=== PATIENT | female | born 1960 | race Caucasian/White ===

== ENCOUNTER → 2016-10-11 | Outpatient (CLI) | payer MEDICAID, BC ==
--- NOTE | 2016-10-14 10:40 | MM ---
Reason for exam: screening (asymptomatic). Last mammogram was performed 1 year ago. History: Patient is postmenopausal. Family history of premenopausal breast cancer in sister at age 32 and premenopausal breast cancer in daughter at age 26. Benign left mammotome panel of the left breast, March 18, 2007. Excisional biopsy of the right breast, 1995. Took hormonal contraceptives for 5 years beginning at age 17. Physical Findings: A clinical breast exam by your physician is recommended on an annual basis and results should be correlated with mammographic findings. MG 3D Screening Mammo W/Cad Bilateral CC and MLO view(s) were taken. Prior study comparison: October 04, 2015, bilateral MG 3d screening mammo w/cad. September 28, 2014, bilateral MG screening mammo w CAD. The breast tissue is heterogeneously dense. This may lower the sensitivity of mammography. Finding: There are typically benign round calcifications in the left breast. Previous mammotome biopsy in the left breast. There is a chronic nodularity bilaterally. There is no discrete abnormality. ASSESSMENT: Benign, BI-RAD 2 RECOMMENDATION: Routine screening mammogram of both breasts in 1 year.
== END | disposition home or self-care (01) ==
LOC: RADMAMWWP 07:32
PROVIDERS: ATTEND Family Medicine
DX: Z12.31 Encounter for screening mammogram for malignant neoplasm of breast (principal)
CPT/HCPCS: 77063; G0202

== ENCOUNTER → 2016-11-04 | Outpatient (CLI) | payer MEDICAID, BC ==
--- NOTE | 2016-11-06 07:43 | XR ---
EXAMINATION TYPE: XR Hip Complete RT DATE OF EXAM: 11/04/2016 9:47 AM COMPARISON: NONE HISTORY: Pain There is no evidence of erosive change or acute fracture. There is axial narrowing of the joint space. No erosive changes. No acute fracture or dislocation. Impression 1. No evidence of acute fracture or dislocation. 2. Significant axial narrowing of the joint space without evidence of erosion. Correlate clinically f or arthropathy.
== END | disposition home or self-care (01) ==
LOC: RADXRYALE 09:33
PROVIDERS: ATTEND Physician Assistant Medical
DX: M25.851 Other specified joint disorders, right hip (principal)
CPT/HCPCS: 73502

== ENCOUNTER 2017-03-10 07:04 | Day surgery (SDC) | payer MEDICAID, BC ==
[2017-03-06 10:53] VITALS: BMI 28.3
[~2017-03-10 07:04] MED LIST: LACTATED RINGERS 1,000 ML IV SCH
[2017-03-10 07:21] VITALS: TEMP 97.6
[2017-03-10] MEDS ORDERED: ONDANSETRON 4 MG/2 ML VIAL IVP STA (07:24)
[2017-03-10] MEDS ORDERED: ONDANSETRON 4 MG/2 ML VIAL IVP ONE (07:30)
[2017-03-10] MEDS ORDERED: PROPOFOL 10 MG/ML 20 ML VIAL IV ONE (07:34)
[2017-03-10] MEDS ORDERED: LIDOCAINE 1% INJ 10MG/ML (20 ML MDV) ONE (07:34)
--- NOTE | 2017-03-10 08:03 | P.OP ---
Date of Procedure: 03/10/17 Preoperative Diagnosis: Screening. Family history of colon cancer in a sibling. Postoperative Diagnosis: 1.sigmoid polyp. 2. moderate diverticulosis. Procedure(s) Performed: Colonoscopy and snare polypectomy Implants: Anesthesia: MAC Surgeon: George Garcia Estimated Blood Loss (ml): 0 Pathology: other (Sigmoid polyp) Condition: stable Disposition: same day Indications for Procedure: Screening. Family history of colon cancer in a sibling. Operative Findings: Small sigmoid polyp about 3 mm in diameter sessile. Moderate diverticulosis. Mild internal hemorrhoids slightly irritated. Description of Procedure: With the patient in the left lateral position rectal digital examination was normal there no palpable masses. 5 video colonoscope was inserted transanally and advanced all the way to the cecum which was entered without visualized. The mucosa were thoroughly examined. Findings 1 there was a small sessile polyp in the sigmoid colon at about 28 cm from the anal verge about the 3 mm in diameter that was removed completely with the snare cautery with good hemostasis. 2 moderate diverticulosis uncomplicated mostly in the sigmoid area with a few scattered diverticula throughout the remainder of the colon. 3 mild internal hemorrhoids appear slightly irritated from the prep. Recommend high-fiber diet. Follow-up colonoscopy in about 5 years.
[2017-03-10 08:30] VITALS: RESP 18
[2017-03-10 08:59] VITALS: BP 136/84; PULSE 66
== END 2017-03-10 09:12 | disposition home or self-care (01) ==
LOC: ORWHC2ENDO 07:04
PROVIDERS: ATTEND Surgery
DX: Z12.11 Encounter for screening for malignant neoplasm of colon (principal); K63.5 Polyp of colon; K57.30 Diverticulosis of large intestine without perforation or abscess without bleeding; K64.8 Other hemorrhoids; Z80.0 Family history of malignant neoplasm of digestive organs; E03.9 Hypothyroidism, unspecified; M85.80 Other specified disorders of bone density and structure, unspecified site; M19.90 Unspecified osteoarthritis, unspecified site; Z79.1 Long term (current) use of non-steroidal anti-inflammatories (NSAID); Z79.83 Long term (current) use of bisphosphonates; Z79.899 Other long term (current) drug therapy; Z88.6 Allergy status to analgesic agent; Z88.5 Allergy status to narcotic agent
CPT/HCPCS: 88305; 45385; J2405; J2001; J2704

== ENCOUNTER → 2017-03-18 | Outpatient (CLI) | payer MEDICAID, BC ==
--- NOTE | 2017-03-18 23:25 | MR ---
EXAMINATION TYPE: MR lumbar spine wo con DATE OF EXAM: 03/18/2017 COMPARISON: MRI lumbar spine March 30, 2012. HISTORY: Chronic pain, lumbago with sciatica, and right-sided sciatica all per order. Pain in low patricia k and right hip for one year per patient. TECHNIQUE: Multiplanar, multisequence imaging of the lumbar spine is performed without IV contrast. FINDINGS: Sagittal images of the lumbar spine show vertebral body heights to appear satisfactory. The re is slight grade 1 anterolisthesis of L4 on L5 seen on today's study. Multilevel disc desiccation i s redemonstrated. Mild disc space narrowing lower lumbar levels is again seen. No large posterior dis c herniations are noted on sagittal images. The conus medullaris remains normal in position and signa l ending at T12-L1 disc space. The bone marrow signal intensity is within normal limits. Hemangioma at T11 vertebra is redemonstrated. Mild multilevel anterior spurring lower lumbar levels is seen. Axial images show the T12-L1, L1-L2, L2-L3, and L3-L4 levels all to remain within normal limits. Axial images at L4-L5 level show mild/moderate facet degenerative changes and ligamentum flavum hyper trophy with spondylolisthesis and small posterior disc herniation mildly effacing anterior thecal sac on axial image 10. Bilateral neural foramina remain patent. Axial images at L5-S1 level show mild to moderate facet degenerative changes bilaterally. Spinal anabela l is preserved. Bilateral neural foramina are patent. IMPRESSION: Degenerative changes L4-L5 and L5-S1 level redemonstrated as detailed above. No Significa nt change from prior MRI. No significant finding is seen to account for patient's right-sided radicul opathy type symptoms.
== END | disposition home or self-care (01) ==
LOC: RADMRIMAIN 17:17
PROVIDERS: ATTEND Physician Assistant Medical
DX: M47.817 Spondylosis without myelopathy or radiculopathy, lumbosacral region (principal); G89.29 Other chronic pain
CPT/HCPCS: 72148

== ENCOUNTER → 2017-03-19 | Outpatient (CLI) | payer MEDICAID, BC ==
--- NOTE | 2017-03-19 19:31 | MR ---
EXAMINATION TYPE: MR hip RT wo con DATE OF EXAM: 03/19/2017 COMPARISON: NONE HISTORY: Right Hip and leg pain Standard multiplanar, multisequence MRI departmental protocol Multiplanar, multisequence images of the right hip were acquired. Diffusion weighted imaging was perf ormed. FINDINGS: There is axial narrowing of the joint space. No erosive changes. There is no marrow edema or contusion. No evidence of osteonecrosis. There is no sizable joint effusion. Anterior labrum appears intact There is a small focal area of abnormal signal along the lateral margin of the greater trochanter. No adjacent marrow edema. This is adjacent to the insertion of the gluteus medius muscle. No definite t endinous retraction or full-thickness tear. Could not exclude partial tear. IMPRESSION: 1. Correlate for trochanteric bursitis gluteus medius tendinosis. 2. Arthritic changes with no diagnostic evidence of erosive change. Correlate for femoral acetabular impingement.
== END | disposition home or self-care (01) ==
LOC: RADMRIMAIN 17:39
PROVIDERS: ATTEND Physician Assistant Medical
DX: M16.11 Unilateral primary osteoarthritis, right hip (principal); M54.31 Sciatica, right side

== ENCOUNTER → 2018-01-16 | Outpatient (CLI) | payer MEDICAID, BC ==
--- NOTE | 2018-01-20 11:22 | MM ---
Reason for exam: screening (asymptomatic). Last mammogram was performed 1 year and 3 months ago. History: Patient is postmenopausal. Family history of premenopausal breast cancer in sister at age 32 and premenopausal breast cancer in daughter at age 26. Benign left mammotome panel of the left breast, March 18, 2007. Excisional biopsy of the right breast, 1995. Took hormonal contraceptives for 5 years beginning at age 17. Physical Findings: A clinical breast exam by your physician is recommended on an annual basis and results should be correlated with mammographic findings. MG 3D Screening Mammo W/Cad Bilateral CC and MLO view(s) were taken. Prior study comparison: October 11, 2016, bilateral MG 3d screening mammo w/cad. October 04, 2015, bilateral MG 3d screening mammo w/cad. There are scattered fibroglandular densities. Previous mammotome biopsy in the left breast. No significant changes when compared with prior studies. ASSESSMENT: Negative, BI-RAD 1 RECOMMENDATION: Routine screening mammogram of both breasts in 1 year.
== END | disposition home or self-care (01) ==
LOC: RADMAMWWP 07:06
PROVIDERS: ATTEND Obstetrics & Gynecology
DX: Z12.31 Encounter for screening mammogram for malignant neoplasm of breast (principal); Z80.3 Family history of malignant neoplasm of breast
CPT/HCPCS: 77063; 77067

== ENCOUNTER → 2018-06-03 | Outpatient (CLI) | payer MEDICAID, BC ==
--- NOTE | 2018-06-03 13:52 | US ---
EXAMINATION TYPE: US thyroid st tissue head/neck DATE OF EXAM: 06/03/2018 COMPARISON: NONE CLINICAL HISTORY: R22.1 swelling/lump/neck. Patient can feel a palpable lump in her left neck, specif ically when she is sitting up. Patient has been taking synthroid for 10-15 years. GLAND SIZE: Right Lobe: 3.1 x 0.6 x 1.1 cm Overall Parenchyma: homogenous Left Lobe: 2.4 x 0.6 x 1.0 cm Overall Parenchyma: homogeneous Isthmus Thickness: 0.2 cm NODULES RIGHT: # of nodules measured on right: 0 LEFT: # of nodules measured on left: 0 ISTHMUS: # of nodules measured in the isthmus: 0 On the left side, there is a prominent hyperechoic area visualized. It appears to be inferior to the thyroid. It measures 0.7 x 0.3 x 0.5 cm. No abnormality is visualized at the area of the patient's pa lpable. IMPRESSION: 1. No abnormality to account for the patient's palpable abnormality. 2. Small subcentimeter hyperechoic area may be a small parathyroid inferior to the left lobe thyroid.
== END | disposition home or self-care (01) ==
LOC: RADUSWWP 12:38
PROVIDERS: ATTEND Family Medicine
DX: R22.1 Localized swelling, mass and lump, neck (principal)
CPT/HCPCS: 76536

== ENCOUNTER → 2019-02-11 | Outpatient (CLI) | payer BC ==
--- NOTE | 2019-02-11 09:07 | US ---
EXAMINATION TYPE: US thyroid st tissue head/neck DATE OF EXAM: 02/11/2019 COMPARISON: US 2018 CLINICAL HISTORY: R22.1 Localized swelling, mass, or lump. Palpable lump left neck x 1 year GLAND SIZE: Right Lobe: 3.6 x 1.1 x 1.0 cm Overall Parenchyma: homogenous Left Lobe: 2.8 x 0.7 x 1.1 cm Overall Parenchyma: homogeneous Isthmus Thickness: 0.2 cm NODULES RIGHT: # of nodules measured on right: 0 LEFT: # of nodules measured on left: 0 ISTHMUS: # of nodules measured in the isthmus: 0 Bilateral neck scanned, left neck: 0.6 x 0.4 x 0.5cm hyperechoic area inferior to thyroid, seen on pr evious exam. Left neck at patient's palpable area: no abnormality seen at this time. IMPRESSION: 1. Stable hyperechoic nodule within the left neck measuring 6 mm too small to characterize.
--- NOTE | 2019-02-16 13:32 | MM ---
Reason for exam: screening (asymptomatic). Last mammogram was performed 1 year and 1 month ago. History: Patient is postmenopausal. Family history of premenopausal breast cancer in sister at age 32 and premenopausal breast cancer in daughter at age 26. Benign left mammotome panel of the left breast, March 18, 2007. Excisional biopsy of the right breast, 1995. Took hormonal contraceptives for 5 years beginning at age 17. Physical Findings: A clinical breast exam by your physician is recommended on an annual basis and results should be correlated with mammographic findings. MG Screening Mammo w CAD Bilateral CC and MLO view(s) were taken. Prior study comparison: January 16, 2018, bilateral MG 3d screening mammo w/cad. October 11, 2016, bilateral MG 3d screening mammo w/cad. The breast tissue is heterogeneously dense. This may lower the sensitivity of mammography. No suspicious abnormality. Left biopsy marker. No significant changes when compared with prior studies. ASSESSMENT: Negative, BI-RAD 1 RECOMMENDATION: Routine screening mammogram of both breasts in 1 year.
== END | disposition home or self-care (01) ==
LOC: RADMAMWWP 08:28
PROVIDERS: ATTEND Family Medicine
DX: Z12.31 Encounter for screening mammogram for malignant neoplasm of breast (principal); R22.1 Localized swelling, mass and lump, neck
CPT/HCPCS: 76536; 77067

== ENCOUNTER → 2019-10-26 | Outpatient (CLI) | payer BC ==
--- NOTE | 2019-10-26 16:26 | XR ---
Right shoulder HISTORY: Right shoulder pain 3 views of the right shoulder Bone mineralization, joint spaces and alignment are maintained. Right lung apex is unremarkable as vi sualized. IMPRESSION: Normal right shoulder. Shoulder MRI may be of benefit.
== END | disposition home or self-care (01) ==
LOC: RADXRYALE 14:42
PROVIDERS: ATTEND Physician Assistant Medical
DX: M25.511 Pain in right shoulder (principal)

== ENCOUNTER → 2020-03-23 | Outpatient (CLI) | payer BC ==
--- NOTE | 2020-03-23 12:21 | XR ---
EXAMINATION TYPE: XR knee complete RT DATE OF EXAM: 03/23/2020 COMPARISON: NONE HISTORY: Pain TECHNIQUE: Three views are submitted. FINDINGS: Joint spaces are preserved. Osseous structures are intact. No acute fracture seen. Mild diffuse os teopenia IMPRESSION: 1. No acute fracture or dislocation.
== END | disposition home or self-care (01) ==
LOC: RADXRYALE 11:29
PROVIDERS: ATTEND Physician Assistant Medical
DX: M25.561 Pain in right knee (principal)

== ENCOUNTER → 2020-05-11 | Outpatient (CLI) | payer BC ==
--- NOTE | 2020-05-15 08:57 | MM ---
Reason for exam: screening (asymptomatic). Last mammogram was performed 1 year and 3 months ago. History: Patient is postmenopausal. Family history of premenopausal breast cancer in sister at age 32 and premenopausal breast cancer in daughter at age 26. Benign left mammotome panel of the left breast, March 18, 2007. Excisional biopsy of the right breast, 1995. Took hormonal contraceptives for 5 years beginning at age 17. Physical Findings: A clinical breast exam by your physician is recommended on an annual basis and results should be correlated with mammographic findings. MG Screening Mammo w CAD Bilateral CC and MLO view(s) were taken. Prior study comparison: February 11, 2019, bilateral MG screening mammo w CAD. January 16, 2018, bilateral MG 3d screening mammo w/cad. There are scattered fibroglandular densities. Previous mammotome biopsy in the left breast. There is chronic nodularity bilaterally. No significant changes when compared with prior studies. ASSESSMENT: Benign, BI-RAD 2 RECOMMENDATION: Routine screening mammogram of both breasts in 1 year.
== END | disposition home or self-care (01) ==
LOC: RADMAMWWP 08:29
PROVIDERS: ATTEND Family Medicine
DX: Z12.31 Encounter for screening mammogram for malignant neoplasm of breast (principal)
CPT/HCPCS: 77067

== ENCOUNTER → 2020-07-19 | Outpatient (CLI) | payer BC ==
--- NOTE | 2020-07-19 13:52 | US ---
EXAMINATION TYPE: US extremity nonvasculr ltd RT DATE OF EXAM: 07/19/2020 COMPARISON: NONE CLINICAL HISTORY: M25.561 pain in right knee. Pt states posterior right knee pain No abnormality visualized within right popliteal fossa. No focal fluid collection. No evidence of ski n thickening or subcutaneous edema. There is patent color Doppler flow within the middle portion of t he popliteal vein. IMPRESSION: No focal abnormality within the right popliteal fossa.
== END | disposition home or self-care (01) ==
LOC: RADUSWWP 07:41
PROVIDERS: ATTEND Family Medicine
DX: M25.561 Pain in right knee (principal)

== ENCOUNTER → 2021-03-28 | Outpatient (CLI) | payer BC ==
--- NOTE | 2021-03-29 00:44 | MR ---
EXAMINATION TYPE: MR knee RT wo con DATE OF EXAM: 03/28/2021 COMPARISON: None HISTORY: Right inner knee pain, painful behind knee, painful knee cap, and swelling for 1 year. Multiplanar multiecho imaging of the right knee without contrast. There is a mild knee joint effusion. There is also 3 x 1 cm popliteal cyst. The anterior and posterio r cruciate ligaments are intact. The collateral ligaments are intact. There is large oblique tear through the posterior horn of the medial meniscus. There is also some def ormity and minimal truncation of the medial meniscus. Lateral meniscus appears fairly normal. The anterior horn medial meniscus is fairly normal. Medial an d lateral knee joint spaces are fairly normal. The patellofemoral joint is intact. There is 5 mm roun ded low signal focus in the joint fluid posterior to the patella. This could be a synovial chondromat osis. Patella has fairly normal signal pattern. There is no evidence for fracture. I see no focal bon e destruction. IMPRESSION: Large complex tear of the posterior horn of the medial meniscus. Knee joint effusion. Possible focus of synovial chondromatosis in the synovial fluid posterior to the patella.
== END | disposition home or self-care (01) ==
LOC: RADMRIMAIN 15:44
PROVIDERS: ATTEND Physician Assistant Medical
DX: M23.321 Other meniscus derangements, posterior horn of medial meniscus, right knee (principal)

== ENCOUNTER 2021-06-07 11:13 | Day surgery (SDC) | payer BC ==
[2021-05-31 10:18] VITALS: BMI 29.8
--- NOTE | 2021-06-06 19:47 | HP ---
HISTORY AND PHYSICAL DATE OF SURGERY: 06/07/2021 Vandana Peterson 60-year-old patient seen with progressive right knee pain. We discussed options. The patient elected to proceed with arthroscopy. Consent was obtained. PAST MEDICAL HISTORY: Hypothyroidism. PAST SURGICAL HISTORY: Hysterectomy, tonsillectomy. DAILY MEDICATIONS: Levothyroxine, ibuprofen. ALLERGIES: NONE. SOCIAL HISTORY: She denies tobacco use. PHYSICAL EVALUATION OF THE RIGHT KNEE: Range of motion zero to 130. Mild effusion. Tenderness, medial joint line. Tenderness, lateral joint line. Positive medial Aki's. Ligaments stable. Hip rotation without pain. Distal neurovascular exam intact. RADIOGRAPHS: Right knee radiographs revealed mild medial compartment osteoarthritis. MRI of right knee revealed a large medial meniscal tear. IMPRESSION: 1. Internal derangement of right knee with medial meniscal tear. 2. Hypothyroidism. PLAN: Right knee arthroscopy with partial meniscectomy and debridement. MMODL / IJN: [id number] /
[~2021-06-07 11:13] MED LIST changes: +DEXAMETHASONE SOD PHOSPHATE 4 MG/ML 1 ML VIAL IV ONE; +ONDANSETRON 4 MG/2 ML VIAL IVP ONE
[2021-06-07] MEDS ORDERED: ONDANSETRON 4 MG/2 ML VIAL ONE ×2 (11:54→15:34)
[2021-06-07] MEDS ORDERED: LIDOCAINE 1% (10MG/ML) FOR IV START INTRADERMA ONE (12:12)
[2021-06-07] MEDS ORDERED: LIDOCAINE 1% INJ 10MG/ML (20 ML MDV) ONE (13:31)
[2021-06-07] MEDS ORDERED: fentaNYL (PF) 50 MCG/ML 2 ML AMP ONE (13:31)
[2021-06-07] MEDS ORDERED: PROPOFOL 10 MG/ML 20 ML VIAL IV ONE (13:31)
[2021-06-07] MEDS ORDERED: SUCCINYLCHOLINE CHLORIDE 100 MG/5 ML SYR IV ONE (13:31)
[2021-06-07] MEDS ORDERED: MIDAZOLAM 2 MG/2 ML VIAL ONE (13:31)
[2021-06-07] MEDS ORDERED: BUPIVACAINE (PF) 0.25% 30 ML VIAL SQ ONE ×2 (13:32→14:07)
--- NOTE | 2021-06-07 14:24 | P.OP ---
Date of Procedure: 06/07/21 Preoperative Diagnosis: Internal derangement right knee Postoperative Diagnosis: 1. Tear medial meniscus right knee 2. Grade 2 chondromalacia medial femoral condyle right knee 3. Reactive synovitis medial, lateral and suprapatellar compartments right knee Procedure(s) Performed: 1. Arthroscopic partial medial meniscectomy right knee 2. Arthroscopic chondroplasty medial femoral condyle right knee 3. Arthroscopic partial synovectomy medial, lateral and suprapatellar compartments right knee Anesthesia: GLORIAA, local Surgeon: Maycol Kahn Estimated Blood Loss (ml): 7 Pathology: none sent Condition: stable Disposition: PACU Indications for Procedure: 60-year-old patient seen with progressive right knee pain. After treatment options were discussed, she elected to proceed with arthroscopy. Operative Findings: See description of procedure Description of Procedure: Patient was taken to the operative suite. Patient underwent a general anesthetic by the department of anesthesia. Patient was given preoperative antibiotics. The right lower extremity was placed in a well-padded arthroscopic leg matthews. The right leg was prepped and draped in the normal sterile orthopedic fashion. A lateral parapatellar and suprapatellar incision was made. Trochars were inserted. Arthroscopy was initiated. Suprapatellar pouch revealed diffuse thick reactive synovitis. The patellofemoral joint appeared to articulate congruently. There was grade 1 chondral malacia the patella with osteochondraltearspresent.. The scope was guided into the medial gutter. No loose bodies or plica were identified. The scope was then guided into the medial compartment. A medial parapatellar incision was made. Trocar inserted followed by probe. There was a complex tear involving the posterior horn of the medial meniscus. There were grade 2 chondromalacia changes of the medial femoral condyle with some osteochondral tears present. There was thick reactive synovitis anteriorly. I performed a partial medial meniscectomy getting down to stable meniscal tissue. I performed a chondroplasty of the medial femoral condyle getting down to stable osteochondral tissue. I performed a partial synovectomy decompressing the thick reactive synovitis. I now washed out the popliteal space with the scope. The residual meniscus was stable. The residual osteochondral surface was stable. There was good decompression of the syno vitis. Scope and probe were then guided into the intercondylar notch. Cruciates were identified, probed and found to be stable. The scope and probe were then guided into lateral compartment. Lateral meniscus was probed and found to be stable. There was no significant chondromalacia involving the lateral compartment. There was some thick reactive synovitis anteriorly. I introduced a motorized shaver and performed a partial synovectomy. The shaver was removed. There was good decompression of the synovitis. The scope was in guided back into the suprapatellar compartment. I introduced a motorized shaver into the suprapatellar compartment. I debrided some piecemeal fragments of meniscus I encountered. I performed a partial synovectomy. Shaver was removed. There was good decompression of the synovitis. Instruments were now removed from the joint. The joint was infiltrated with .25% Marcaine. Steri-Strips were applied to the portal sites. Sterile dressings were applied. The patient was placed into a VAHID hose. No tourniquet was utilized. The patient was awakened, transferred to a bed and taken to recovery stable satisfactory condition.
[2021-06-07 14:37] VITALS: TEMP 97.8
[2021-06-07] MEDS: fentaNYL (PF) 50 MCG/ML 2 ML AMP IV PRN ×2 (14:50→14:55)
[2021-06-07] MEDS ORDERED: hydrALAZINE HCL 20 MG/ML 1 ML VIAL ONE (15:09)
[2021-06-07] MEDS ORDERED: hydrALAZINE HCL 20 MG/ML 1 ML VIAL IVP ONE (15:10)
[2021-06-07] MEDS ORDERED: LACTATED RINGERS 1,000 ML IV ONE (15:14)
[2021-06-07] MEDS ORDERED: ONDANSETRON 4 MG/2 ML VIAL IVP ONE (15:36)
[2021-06-07 16:01] VITALS: BP 127/77; PULSE 102; RESP 18
== END 2021-06-07 16:27 | disposition home or self-care (01) ==
LOC: OR 11:13
PROVIDERS: ATTEND Orthopaedic Surgery
DX: M23.203 Derangement of unspecified medial meniscus due to old tear or injury, right knee (principal); E03.9 Hypothyroidism, unspecified
CPT/HCPCS: 29876; 29881; J2250; J0360; J1100; J0690; J2405; J2001; J3010; J0330; J2704

== ENCOUNTER → 2021-07-03 | Outpatient (CLI) | payer BC ==
--- NOTE | 2021-07-03 14:17 | BD ---
EXAMINATION TYPE: Axial Bone Density DATE OF EXAM: 07/03/2021 COMPARISON: 10/04/2015 CLINICAL HISTORY: Disorder of bone. Height: 64.5 IN Weight: 184 LBS FRAX RISK QUESTIONS: Secondary Osteoporosis: 2. Hyperthyroidism: YES 3. Menopause before 45: PARTIAL HYST AGE 42 RISK FACTORS HISTORY OF: Family History of Osteoporosis: YES MOTHER Active: YES Diet low in dairy products/other sources of calcium: YES Postmenopausal woman: PARTIAL HYST AGE 42 MEDICATIONS: Thyroid Medications: YES Which medication: Levothyroxine How Lon+ YEARS Osteoporosis Medications: NOT NOW Which medication: Fosamax How Lon YEARS Additional Medications: CALCIUM, LEVOTHYROXINE, EXAM MEASUREMENTS: Bone mineral densitometry was performed using the [employer] System. Bone mineral density as measured about the Lumbar spine is: ----- L1-L4(G/cm2): 1.123 T Score Values are as follows: ----- L2: -0.7 ----- L3: -1.0 ----- L4: -0.2 ----- L1-L4: -0.5 Bone mineral density has: Increased 3.2% since study of: 10/04/2015 Bone mineral density about the R hip (g/cm2): 0.957 Bone mineral density about the L hip (g/cm2): 0.939 T Score values are as follows: -----R Neck: -0.6 -----L Neck: -0.7 -----R Total: -0.4 -----L Total: -0.5 Bone mineral density has: Decreased -1.5% since study of: 10/04/2015 IMPRESSION: Normal (Values between +1 and -1 indicate normal bone mass). Consider repeating this study in 5 year s or sooner if there is some new clinical indication. NOTE: T-SCORE=SD OF THE YOUNG ADULT MEAN.
== END | disposition home or self-care (01) ==
LOC: RADBDWWP 08:40
PROVIDERS: ATTEND Family Medicine
DX: M89.9 Disorder of bone, unspecified (principal); Z78.0 Asymptomatic menopausal state; E05.90 Thyrotoxicosis, unspecified without thyrotoxic crisis or storm
CPT/HCPCS: 77080

== ENCOUNTER → 2021-08-14 | Outpatient (CLI) | payer BC ==
--- NOTE | 2021-08-16 13:46 | MM ---
Reason for exam: screening (asymptomatic). Last mammogram was performed 1 year and 3 months ago. History: Patient is postmenopausal. Family history of premenopausal breast cancer in sister at age 32 and premenopausal breast cancer in daughter at age 26. Benign left mammotome panel of the left breast, March 18, 2007. Excisional biopsy of the right breast, 1995. Took hormonal contraceptives for 5 years beginning at age 17. Physical Findings: A clinical breast exam by your physician is recommended on an annual basis and results should be correlated with mammographic findings. MG 3D Screening Mammo W/Cad Bilateral CC and MLO view(s) were taken. Prior study comparison: May 11, 2020, bilateral MG screening mammo w CAD. February 11, 2019, bilateral MG screening mammo w CAD. The breast tissue is heterogeneously dense. This may lower the sensitivity of mammography. Circumscribed 1cm low density nodularity has increased in size upper outer quadrant left breast. A cyst is suggested. 6 month follow up recommended. ASSESSMENT: Probably benign, BI-RAD 3 RECOMMENDATION: Follow-up diagnostic mammogram of the left breast in 6 months.
== END | disposition home or self-care (01) ==
LOC: RADMAMWWP 11:58
PROVIDERS: ATTEND Family Medicine
DX: Z12.31 Encounter for screening mammogram for malignant neoplasm of breast (principal); Z78.0 Asymptomatic menopausal state; Z80.3 Family history of malignant neoplasm of breast
CPT/HCPCS: 77063; 77067

== ENCOUNTER → 2021-09-25 | Outpatient (CLI) | payer BC ==
--- NOTE | 2021-09-25 12:12 | XR ---
EXAMINATION TYPE: XR wrist complete RT DATE OF EXAM: 09/25/2021 COMPARISON: NONE HISTORY: Pain TECHNIQUE: Four views submitted. FINDINGS: The osseous structures are intact. The joint spaces are preserved and there is no acute fracture or dislocation. Mild diffuse osteopenia IMPRESSION: 1. No definite acute fracture or dislocation if symptoms persist, follow-up study in 7 to 10 days wo uld be suggested
== END | disposition home or self-care (01) ==
LOC: RADXRYALE 11:53
PROVIDERS: ATTEND Physician Assistant Medical
DX: M25.531 Pain in right wrist (principal)

== ENCOUNTER → 2021-11-02 | Outpatient (CLI) | payer BC ==
[2021-11-02 09:40] VITALS: BP 133/88; PULSE 65; RESP 16; TEMP 97.9
--- NOTE | 2021-11-02 10:08 | P.GSHP ---
History of Present Illness H&P Date: 11/02/21 Chief Complaint: lesion left breast Vandana is a 61 year old white female seen in consultation for Dr. Brower regarding a mammographic nodularity in the left breast. This was from a mammogram on 08-14-21. Nothing of concern was noted on her right breast. Patient does not feel anything of concern in either breast. She is not complaining of any pain in her breasts, no nipple discharge, no skin changes. Se had had a right breast open biopsy in the remote past. She did not have any cancer. Is not complaining of any trauma or infection in the breast. Caffeine: 2 cups coffee/day nicotine: none chocolate: occasional hormones: estrogen 3 months 20 years ago BCP: 5 years at [age] Family History: sister: breast cancer at 26, she had three recurrences, she has had a stem cell transplant (no genetic testing) daughter: breast cancer at 23; lumpectomy three tries to clear margins, three rounds of chem and radiation is now cancer free; about 20 years ago ( no genetic testing) father: layrngeal cancer smoke Hormonal History: menarche: 12 , breast fed: no, age at first : 16 menopause: hysterectomy at 44; done for bleeding, left ovaries BCP: 5 years at 19 estrogen: 3 months at time of hysterectomy Surgical history: Hysterectomy of 44 Right knee scope breast biopsy right tonsillectomy Medical history: Hypothyroid Social history: Nicotine: Negative Alcohol: Occasional Drugs: Negative - Constitutional Constitutional: Reports sweats - EENT Eyes: denies blurred vision, denies pain Ears: deny: decreased hearing, tinnitus Ears, nose, mouth and throat: Denies headache, Denies sore throat - Breasts Breasts: bilateral: as per HPI - Cardiovascular Cardiovascular: Denies chest pain, Denies shortness of breath - Respiratory Respiratory: Denies cough, Denies 7 - Gastrointestinal Gastrointestinal: Denies abdominal pain, Denies diarrhea, Denies nausea, Denies vomiting - Genitourinary (Female) Genitourinary: Denies dysuria, Denies hematuria - Menstruation Menstruation: Reports post hysterectomy - Musculoskeletal Musculoskeletal: Denies myalgias - Integumentary Integumentary: Denies pruritus, Denies rash - Neurological Neurological: Denies numbness, Denies weakness - Psychiatric Psychiatric: Denies anxiety, Denies depression - Endocrine Comment: hypothyroid - Hematologic/Lymphatic Comment: none - Allergic/Immunologic Allergic/Immunologic: Reports as per HPI Past Medical History Past Medical History: Thyroid Disorder Additional Past Medical History / Comment(s): DIVERTICULOSIS History of Any Multi-Drug Resistant Organisms: None Reported Past Surgical History: Breast Surgery, Hysterectomy, Tonsillectomy Additional Past Surgical History / Comment(s): BILAT BREAST BIOPSY X 2-BOTH BENIGN. COLONOSCOPY Past Anesthesia/Blood Transfusion Reactions: No Reported Reaction Past Psychological History: No Psychological Hx Reported Smoking Status: Never smoker Past Alcohol Use History: Occasional Past Drug Use History: None Reported - Past Family History Father Family Medical History: Cancer Sister(s) Family Medical History: Cancer Daughter(s) Family Medical History: Cancer Mother Family Medical History: Pulmonary Embolus Medications and Allergies Home Medications Medication Instructions Recorded Confirmed Type Ibuprofen 800 mg PO Q8HR PRN 03/06/17 11/02/21 History Levothyroxine Sodium [Synthroid] 50 mcg PO DAILY 03/06/17 11/02/21 History Calcium Carbonate/Vitamin D3 2 each PO DAILY 05/31/21 11/02/21 History [Calcium 600-Vit D3 12.5 Mcg (500 Iu)] Allergies Allergy/AdvReac Type Severity Reaction Status Date / Time hydrocodone [From Vicoprofen] AdvReac Vomiting Verified 11/02/21 09:37 Surgical - Exam Vital Signs Temp Pulse Resp BP Pulse Ox 97.9 F 65 16 133/88 99 11/02/21 09:38 11/02/21 09:38 11/02/21 09:38 11/02/21 09:38 11/02/21 09:38 BMI 31.4 - General well developed, well nourished, no distress - Eyes normal ocular movement - ENT no hearing loss - Neck trachea midline - Respiratory normal respiratory effort, clear to auscultation - Cardiovascular Rhythm: regular Heart Sounds: normal: S1, S2 - Abdomen Abdomen: soft - Integumentary normal turgor - Neurologic no disoriented, no combative - Musculoskeletal normal gait, normal posture - Psychiatric oriented to time, oriented to person, oriented to place, speech is normal, memory intact Breast Exam: BRA: 42DD inspection: bilateral grade 2 ptosis; a fungal infection under each breast palpation: Right breast: Multi-positional exam fibrocystic changes no dominant masses or nodules of concern Right axilla: No adenopathy of concern Left breast: Multi-positional exam fibrocystic changes no dominant masses or nodules of concern Left axilla: No adenopathy of concern Results Mammogram reviewed Assessment and Plan Assessment: Impression: Fibrocystic breast changes Abnormal left breast mammogram nodular area question if this is changed in size Family history of breast cancer daughter and sister Plan: Genetic testing Ultrasound left breast to evaluate area of nodularity Follow-up after ultrasound in genetic testing Saline cream under each breasttin cream under each breast CC: Dr. Brower
== END ==
LOC: WWCWWP 08:51
PROVIDERS: ATTEND Surgery
DX: N60.11 Diffuse cystic mastopathy of right breast (principal); N60.12 Diffuse cystic mastopathy of left breast; R92.8 Other abnormal and inconclusive findings on diagnostic imaging of breast; E03.9 Hypothyroidism, unspecified; Z79.890 Hormone replacement therapy; Z88.5 Allergy status to narcotic agent; Z80.3 Family history of malignant neoplasm of breast

== ENCOUNTER → 2021-11-13 | Outpatient (CLI) | payer BC ==
--- NOTE | 2021-11-13 09:14 | USB ---
Reason for exam: clinical finding. History: Patient is postmenopausal. Family history of premenopausal breast cancer in sister at age 32 and premenopausal breast cancer in daughter at age 26. Benign left mammotome panel of the left breast, March 18, 2007. Excisional biopsy of the right breast, 1995. Took hormonal contraceptives for 5 years beginning at age 17. Physical Findings: Nurse did not find any significant physical abnormalities on exam. US Breast LT Left complete breast ultrasound includes all four quadrants, the retroareolar region and axilla. Finding demonstrates no cystic or solid lesion seen. These results were verbally communicated with the patient and result sheet given to the patient on 11/13/21. ASSESSMENT: Negative, BI-RAD 1 RECOMMENDATION: Follow-up diagnostic mammogram of the left breast in 3 months.
== END | disposition home or self-care (01) ==
LOC: RADUSWWP 07:38
PROVIDERS: ATTEND Surgery
DX: R92.8 Other abnormal and inconclusive findings on diagnostic imaging of breast (principal); Z80.3 Family history of malignant neoplasm of breast; Z78.0 Asymptomatic menopausal state

== ENCOUNTER → 2022-03-19 | Outpatient (CLI) | payer BC ==
--- NOTE | 2022-03-19 09:34 | MM ---
Reason for Exam: Follow-up at short interval from prior study. Last screening mammogram was performed 7 month(s) ago. Patient History: Menarche at age 11. First Full-Term at age 16. Hysterectomy at age 41. Postmenopausal. Hormonal Contraceptives, starting at age 17 for 5 years. 1995, Excisional Biopsy on the Right side. 03/18/2007, Benign Core Biopsy on the left side. Sister had breast cancer, age 32. Daughter had breast cancer, age 26. Risk Values: Wanda 5 year model risk: 10.7%. NCI Lifetime model risk: 39.7%. Prior Study Comparison: 02/11/2019 Bilateral Screening Mammogram, [facility]. 05/11/2020 Bilateral Screening Mammogram, [facility]. 08/14/2021 Bilateral Screening Mammogram, [facility]. Tissue Density: Left: The breast tissue is heterogeneously dense. This may lower the sensitivity of mammography. Findings: Analyzed By CAD. Breast tissue is heterogeneously dense with benign calcifications noted. Previous biopsy clip marker is noted. Overall Assessment: Benign, BI-RAD 2 Management: Screening Mammogram of both breasts in 6 months. A clinical breast exam by your physician is recommended on an annual basis and results should be correlated with mammographic findings. This exam should not preclude additional follow-up of suspicious palpable abnormalities. Results were given to the patient verbally at the time of exam. Electronically signed and approved by: Anthony Cooper M.D. Radiologis
== END | disposition home or self-care (01) ==
LOC: RADMAMWWP 09:01
PROVIDERS: ATTEND Family Medicine
DX: R92.1 Mammographic calcification found on diagnostic imaging of breast (principal)
CPT/HCPCS: 77061; 77065

== ENCOUNTER → 2022-09-24 | Outpatient (CLI) | payer BC ==
--- NOTE | 2022-09-25 09:39 | MM ---
Reason for Exam: Screening (asymptomatic). Last mammogram was performed 1 year(s) and 1 month(s) ago. Patient History: Menarche at age 11. First Full-Term at age 16. Hysterectomy at age 41. Postmenopausal. Hormonal Contraceptives, starting at age 17 for 5 years. 1995, Excisional Biopsy on the Right side. 03/18/2007, Benign Core Biopsy on the left side. Sister had breast cancer, age 32. Daughter had breast cancer, age 26. Risk Values: Wanda 5 year model risk: 10.7%. NCI Lifetime model risk: 39.7%. Prior Study Comparison: 05/11/2020 Bilateral Screening Mammogram, [facility]. 08/14/2021 Bilateral Screening Mammogram, [facility]. 03/19/2022 Left MG 3D diag mammo w/cad LT, [facility]. Tissue Density: The breast tissue is heterogeneously dense. This may lower the sensitivity of mammography. Findings: Analyzed By CAD. Pattern appears stable. No suspicious groups of microcalcifications, spiculated or lobular masses, architectural distortion or other secondary signs of malignancy are mammographically apparent. Overall Assessment: Benign, BI-RAD 2 Management: Screening Mammogram of both breasts in 1 year. A negative mammogram report should not preclude additional follow up of suspicious palpable abnormalities. Patient should continue monthly self breast exam. A clinical breast exam by your physician is recommended on an annual basis and results should be correlated with mammographic findings. Electronically signed and approved by: Henrique Nguyen D.O. Radiologis
== END | disposition home or self-care (01) ==
LOC: RADMAMWWP 16:37
PROVIDERS: ATTEND Family Medicine
DX: Z12.31 Encounter for screening mammogram for malignant neoplasm of breast (principal); Z78.0 Asymptomatic menopausal state; Z80.3 Family history of malignant neoplasm of breast
CPT/HCPCS: 77063; 77067

== ENCOUNTER → 2022-10-22 | Outpatient (CLI) | payer BC ==
--- NOTE | 2022-10-22 12:49 | US ---
EXAM: US axilla RT DATE OF EXAM: 10/22/2022 8:59 AM COMPARISON STUDIES: PATIENT HISTORY: RISK CALCULATION: FINDINGS: Targeted ultrasound right axilla. In the area of palpable mass, right axilla, a borderline- sized lymph node is demonstrated measuring 1.7 x 0.89 x 1.3cm with a normal cortical thickness of 0.2 4cm. No other solid or cystic lesion or axillary lymphadenopathy is seen. ASSESSMENT: 3 - Probably Benign RECOMMENDATION: 1. Ultrasound Right in 6 Months. COMMENTS: 1. Note the patient's very high Wanda score (11%, greater than 1.67% being elevated risk) and overall lifetime risk for the development of breast cancer (nearly 40%). Consider specialist referral to ass ess eligibility for a risk reducing agent. In addition, the patient may qualify for future screening with alternating mammogram and breast MRI. 2. Patient should continue monthly self breast exams. A clinical breast exam by your physician is re commended on an annual basis. 3. This exam should not preclude additional follow-up of suspicious palpable abnormalities.
== END | disposition home or self-care (01) ==
LOC: RADUSWWP 08:26
PROVIDERS: ATTEND Family Medicine
DX: R22.31 Localized swelling, mass and lump, right upper limb (principal)

== ENCOUNTER → 2023-10-07 | Outpatient (CLI) | payer BC ==
--- NOTE | 2023-10-07 16:34 | US ---
EXAMINATION TYPE: US axilla RT DATE OF EXAM: 10/07/2023 COMPARISON: NONE CLINICAL INDICATION: Female, 62 years old with history of R22.31 SWELLING, MASS LUMP; Follow up axill andrés lymph nodes TECHNIQUE: FINDINGS: scanned right axilla, lymph nodes visualized, largest = 2.1cm . No thickened cortex evide nt. IMPRESSION: 1. No suspicious axillary nodes.
--- NOTE | 2023-10-07 18:08 | MM ---
Reason for Exam: Screening (asymptomatic). Last mammogram was performed 1 year(s) and 1 month(s) ago. Patient History: Menarche at age 11. First Full-Term at age 16. Hysterectomy at age 41. Postmenopausal. Hormonal Contraceptives, starting at age 17 for 5 years. 1995, Excisional Biopsy on the Right side. 03/18/2007, Benign Core Biopsy on the left side. Sister had breast cancer, age 32. Daughter had breast cancer, age 26. Risk Values: Briseyda 5 year model risk: 11.0%. NCI Lifetime model risk: 38.8%. Prior Study Comparison: 08/14/2021 Bilateral Screening Mammogram, [facility]. 03/19/2022 Left MG 3D diag mammo w/cad LT, [facility]. 09/24/2022 Bilateral MG 3D screening mammo w/cad, [facility]. Tissue Density: There are scattered fibroglandular densities. Findings: Analyzed By CAD. Unchanged bilateral areas of asymmetric density. There is no suspicious group of microcalcifications or new suspicious mass in either breast. Overall Assessment: Benign, BI-RAD 2 Management: Screening Mammogram of both breasts in 1 year. SEE NOTE BELOW IN REGARDS TO PATIENT'S INCREASED FIVE-YEAR BRISEYDA SCORE AND PATIENT'S INCREASED LIFETIME RISK SCORE. Patient should continue monthly self-breast exams. A clinical breast exam by your physician is recommended on an annual basis. This exam should not preclude additional follow-up of suspicious palpable abnormalities. Note on Briseyda scores and lifetime risk: 1. A Briseyda score greater than 3% is considered moderate risk. If this is the case, consider specialist referral to assess eligibility for a risk reducing agent. 2. If overall lifetime risk for the development of breast cancer is 20% or higher, the patient may qualify for future screening with alternating mammogram and breast MRI. Electronically signed and approved by: Tello Cruz M.D. Radiologist
== END | disposition home or self-care (01) ==
LOC: RADMAMWWP 07:30
PROVIDERS: ATTEND Family Medicine
DX: Z12.31 Encounter for screening mammogram for malignant neoplasm of breast (principal); R22.31 Localized swelling, mass and lump, right upper limb; Z78.0 Asymptomatic menopausal state; Z80.3 Family history of malignant neoplasm of breast
CPT/HCPCS: 77063; 77067

== ENCOUNTER → 2023-11-03 | Outpatient (CLI) | payer BC ==
--- NOTE | 2023-11-03 09:01 | US ---
EXAMINATION TYPE: US pelvic complete DATE OF EXAM: 11/03/2023 COMPARISON: NONE CLINICAL INDICATION: Female, 63 years old with history of R19.03 RIGHT LOWER QUADRANT ABDOMINAL SWELL MEJIA GAMBINO; Right pelvic pain TECHNIQUE: Transabdominal sonographic images of the pelvis were acquired. Date of LMP: 20+ years ago EXAM MEASUREMENTS: Right Ovary: 1.7 x 0.9 x 1.1 cm Left Ovary: 3.7 x 2.9 x 3.6 cm 1. Uterus: surgically absent 2. Endometrium: surgically absent 3. Right Ovary: wnl 4. Left Ovary: 2.9 x 2.7 x 2.6cm cyst. 5. Bilateral Adnexa: wnl 6. Posterior cul-de-sac: wnl IMPRESSION: 1. No evidence for acute process. 2. Surgically absent uterus. 3. Left simple ovarian cyst measuring up to 2.9 cm.
--- NOTE | 2023-11-03 09:05 | US ---
EXAMINATION TYPE: US abdomen complete DATE OF EXAM: 11/03/2023 COMPARISON: NONE CLINICAL INDICATION: Female, 63 years old with history of R19.03 RIGHT LOWER QUADRANT ABDOMINAL SWELL ING, [place]; Right leg pain TECHNIQUE: Multiple sonographic images of the abdomen are obtained. FINDINGS: EXAM MEASUREMENTS: Liver Length: 16.4 cm Gallbladder Wall: 0.2 cm CBD: 0.5 cm Spleen: 10.5 cm Right Kidney: 11.8 x 5.6 x 5.5 cm Left Kidney: 11.4 x 5.7 x 5.1 cm Pancreas: visualized portions wnl, limited by overlying midline bowel gas Liver: attenuating, mildly heterogeneous with 2.3cm hypoechoic area near gallbladder is compatible with focal fatty sparing. Gallbladder: wnl Evidence for sonographic Matias's sign: no CBD: visualized portions wnl, limited by overlying bowel gas Spleen: wnl Right Kidney: wnl Left Kidney: wnl Upper IVC: wnl Abd Aorta: visualized portions wnl, limited by overlying midline bowel gas The liver is relatively homogenous with increased echotexture. No suspicious masses dilated ducts or cysts. The intrahepatic portion of the IVC and proximal abdominal aorta are within normal limits. Th ere is no evidence of cholelithiasis. Common bile duct is unremarkable. The visualized portions of the pancreas are homogenous. The spleen is unremarkable. Kidneys are symmetric and free of hydronep hrosis. No renal lesions are seen. IMPRESSION: 1. No evidence for acute process. 2. Hepatic steatosis without evidence for suspicious mass.
== END | disposition home or self-care (01) ==
LOC: RADUSWWP 07:19
PROVIDERS: ATTEND Family Medicine
DX: K76.0 Fatty (change of) liver, not elsewhere classified (principal); N83.292 Other ovarian cyst, left side
CPT/HCPCS: 76700; 76856

== ENCOUNTER → 2024-12-07 | Outpatient (CLI) | payer MEDICARE ==
--- NOTE | 2024-12-07 08:46 | MM ---
Reason for Exam: Screening (asymptomatic). Last mammogram was performed 1 year(s) and 2 month(s) ago. Patient History: Menarche at age 11. First Full-Term at age 16. Hysterectomy at age 41. Postmenopausal. Hormonal Contraceptives, starting at age 17 for 5 years. 1995, Excisional Biopsy on the Right side. 03/18/2007, Benign Core Biopsy on the left side. Sister had breast cancer, age 32. Daughter had breast cancer, age 26. Risk Values: Wanda 5 year model risk: 11.6%. NCI Lifetime model risk: 36.8%. Prior Study Comparison: 03/19/2022 Left MG 3D diag mammo w/cad , [facility]. 09/24/2022 Bilateral MG 3D screening mammo w/cad, [facility]. 10/07/2023 Bilateral MG 3D screening mammo w/cad, [facility]. Tissue Density: The breasts are heterogeneously dense, which may obscure small masses. Findings: Analyzed By CAD. There is no suspicious group of microcalcifications or new suspicious mass in either breast. Overall Assessment: Negative, BI-RAD 1 Management: Screening Mammogram of both breasts in 1 year. . Patient should continue monthly self-breast exams. A clinical breast exam by your physician is recommended on an annual basis. This exam should not preclude additional follow-up of suspicious palpable abnormalities. Note on Wanda scores and lifetime risk: 1. A Wanda score greater than 3% is considered moderate risk. If this is the case, consider specialist referral to assess eligibility for a risk reducing agent. 2. If overall lifetime risk for the development of breast cancer is 20% or higher, the patient may qualify for future screening with alternating mammogram and breast MRI. [facility], , 12/07/2024 8:43 AM. Electronically signed and approved by: Juwan Jarvis M.D. Radiologis
== END | disposition home or self-care (01) ==
LOC: RADMAMWWP 07:23
PROVIDERS: ATTEND Family Medicine
DX: Z12.31 Encounter for screening mammogram for malignant neoplasm of breast (principal); R92.333 Mammographic heterogeneous density, bilateral breasts; Z78.0 Asymptomatic menopausal state; Z80.3 Family history of malignant neoplasm of breast
CPT/HCPCS: 77063; 77067